=== PATIENT | male | born 1995 ===

== ENCOUNTER 2020-07-27 18:00 | Outpatient (CLI) | payer OTHER | END 2020-07-27 18:01 | disposition home or self-care (01) | LOC: SLEEPLAB 18:00 | PROVIDERS: ATTEND Family Medicine | DX: G47.33 Obstructive sleep apnea (adult) (pediatric) (principal); R53.83 Other fatigue; R51.9 Headache, unspecified; J02.9 Acute pharyngitis, unspecified; R06.83 Snoring; G47.00 Insomnia, unspecified; F32.9 Major depressive disorder, single episode, unspecified; F90.9 Attention-deficit hyperactivity disorder, unspecified type | CPT/HCPCS: 95806 ==